=== PATIENT | male | born 1960 | race Caucasian/White ===

== ENCOUNTER 2021-12-17 07:48 | Day surgery (SDC) | payer BC ==
[~2021-12-17] VITALS: Ht 180.3 cm; Wt 115.2 kg
[~2021-12-17 07:48] MED LIST: CBD PO; IBUP800 PO; MELATONIN5 M1 PO; [UNRECOGNIZED DRUG - OTHER] TOP
--- NOTE | 2021-12-17 17:20 | NUR ---
SHIFT SUMMARY PT S/P R TOTAL KNEE. AQUACEL DRESSING IN PLACE AND CDI. PT STILL VERY NUMB FROM HIS SPINAL AND HAS NOT BEEN OUT OF BED. NO C/O PAIN. VSS. PT TOLERATING PO INTAKE WELL.
--- NOTE | 2021-12-18 04:32 | NUR ---
SHIFT SUMMARY POD1 R TKA. AQUACEL DRESSING WITH CIARAN WRAP CDI. PT TOLERATES PO INTAKE, UP TO THE BATHROOM TO VOID WITH 1 ASSIST MAC DAWNW. UP IN CHAIR MOST OF THIS SHIFT. PT MEDICATED FOR PAIN WITH 10MG OXY. TORADOL AND TYLENOL. IV IS SALINE LOCKED. PLAN FOR PHYSICAL THERAPY TODAY AND POSSIBLE DISCHARGE HOME. VITAL SIGNS HAVE BEEN STABLE THROUGHOUT SHIFT, SBP DID ELEVATE TO 170 AFTER AMBULATION TO BATHROOM. PAIN MEDICATION GIVEN AND BP RECHECKED CAME DOWN TO 160. REPORTS SOME NUMBNESS IN THE R FOOT, DENIES TINGLING. CALLS APPROPRIATELY CALL LIGHT IN REACH. WILL CONTINUE TO MONITOR AND REPORT TO DAY RN.
[2021-12-18 05:06] LABS: BASOPHILS ABSOLUTE AUTO 0.02 K/mm3 (0.00-0.23); BASOPHILS PERCENT AUTO 0 % (0-2); EOSINOPHILS PERCENT AUTO 0 % (0-6); Hematocrit 42.5 % (37.0-53.0); Hemoglobin 14.4 g/dL (13.5-17.5); IMMATURE GRAN PERCENT AUTO 1 % (0-1); LYMPHOCYTES ABSOLUTE AUTO 1.46 K/mm3 (0.84-5.20); LYMPHOCYTES PERCENT AUTO 8 % (21-46); MONOCYTES PERCENT AUTO 6 % (4-13); Mean Corpuscular HGB 31.4 pg (26.0-34.0); Mean Corpuscular HGB Conc 33.9 g/dL (31.5-36.5); Mean Corpuscular Volume 93 fL (80-100); NEUTROPHILS ABSOLUTE AUTO 15.73 K/mm3 (1.96-9.15); NEUTROPHILS PERCENT AUTO 86 % (41-73); Platelet Count 198 K/mm3 (150-400); RDW Coefficient Variation 13.3 % (11.7-14.2); RDW Standard Deviation 45.2 fL (35.1-46.3); Red Blood Cell Count 4.58 M/mm3 (4.30-5.90); White Blood Cell Count 18.31 K/mm3 (4.00-11.30)
[2021-12-18 05:39] LABS: Bun/Creatinine Ratio 27.3 (12.0-20.0); Calcium, Blood 8.9 mg/dL (8.5-10.1); Creatinine, Blood 0.77 mg/dL (0.60-1.20); Potassium, Blood 4.7 mmol/L (3.5-5.5)
[2021-12-18] MEDS ORDERED: ASPI81CH PO (08:46)
[2021-12-18] MEDS ORDERED: Percocet 5-3251 EACH PO (08:47)
--- NOTE | 2021-12-18 12:36 | NUR ---
DISCHARGE PT HAS CLEARED THERAPY. PAIN WELL CONTROLLED PER EMAR. AQUACEL IN PLACE, C/D/I. EATING, DRINKING, & VOIDING WELL. DISCUSSED DISCHARGE INSTRUCTIONS WITH PATIENT. DRESSINGS, DISCHARGE INSTRUCTIONS, SCRIPT & POLAR PACK SENT WITH PATIENT. AWAITING RIDE.
--- NOTE | 2021-12-18 13:00 | NUR ---
PATIENT ESCORTED OUT VIA W/C
== END 2021-12-18 13:45 | disposition home or self-care (01) ==
LOC: ORSCMMR 07:48 → ORD 10:00 → SURS 13:00 → ORD 14:00 → ORSCMMR 12-18 13:45
PROVIDERS: Orthopaedic Surgery
PROC: 0SRC0JA Replacement of Right Knee Joint with Synthetic Substitute, Uncemented, Open Approach (ICD-10-PCS; principal; 2021-12-17 10:00)
DX: M17.11 Unilateral primary osteoarthritis, right knee (principal); G47.33 Obstructive sleep apnea (adult) (pediatric); Z87.891 Personal history of nicotine dependence; E66.9 Obesity, unspecified; Z68.34 Body mass index [BMI] 34.0-34.9, adult
CPT/HCPCS: 36415; 73560-RT; 80048; 85025; 94660; 94762; 97110; 97161; 97530; A9270; C1776; J0171; J0690; J0735; J1100; J1885; J2250; J2370; J2704; J2795; J3010; J7120